=== PATIENT | male | born 1995 | race Caucasian/White ===

== ENCOUNTER 2020-06-08 00:07 | Emergency (ER) | payer BC ==
[~2020-06-08] VITALS: Ht 187.9 cm; Wt 95.3 kg
[2020-06-08] MEDS ORDERED: IBUPROFEN600 MG PO (00:44)
[2020-06-08] MEDS ORDERED: Tobrex Ophth S2.5 ML OPH (00:44)
== END 2020-06-08 00:56 | disposition home or self-care (01) ==
LOC: ED 00:07
DX: T15.02XA Foreign body in cornea, left eye, initial encounter (principal); Z88.0 Allergy status to penicillin; Y92.89 Other specified places as the place of occurrence of the external cause